=== PATIENT | female | born 1960 ===

== ENCOUNTER 2020-02-16 10:44 | Outpatient (REF) | payer OTHER, SELFPAY ==
[2020-02-20 21:41] LABS: SARS-CoV-2 RNA Undetected (Undetected); SARS-CoV-2 Specimen Source Nasopharynx
== END 2020-02-16 11:04 ==
LOC: NCHCN 10:44
PROVIDERS: PCP Family Medicine; Visit Provider Family Medicine
DX: Z11.59 Encounter for screening for other viral diseases (principal)
CPT/HCPCS: U0003

== ENCOUNTER 2020-09-22 11:18 | Outpatient (REF) | payer OTHER, SELFPAY ==
[2020-09-22 13:42] LABS: Calculated LDL 137 mg/dL (<100); Cholesterol 233 mg/dL (<200); HDL Cholesterol 91 mg/dL (40-60); Triglyceride 26 mg/dL (<150)
[2020-09-22 14:09] LABS: Hemoglobin A1C 5.8 % (<5.7)
[2020-09-24 17:36] LABS: Vitamin D 25 Total 22.2 ng/mL (30-100)
== END 2020-09-22 11:19 | disposition home or self-care (01) ==
LOC: NCHCN 11:18
PROVIDERS: PCP Family Medicine; Visit Provider Family Medicine
DX: Z00.00 Encounter for general adult medical examination without abnormal findings (principal); M81.0 Age-related osteoporosis without current pathological fracture; M12.871 Other specific arthropathies, not elsewhere classified, right ankle and foot; M12.872 Other specific arthropathies, not elsewhere classified, left ankle and foot; Z13.220 Encounter for screening for lipoid disorders; Z13.1 Encounter for screening for diabetes mellitus
CPT/HCPCS: 80061; 82306; 83036

== ENCOUNTER 2021-02-02 14:37 | Outpatient (REF) | payer OTHER, SELFPAY | END 2021-02-02 14:38 | disposition home or self-care (01) | LOC: NCHCN 14:37 | PROVIDERS: PCP Family Medicine; Visit Provider Family Medicine | DX: R19.7 Diarrhea, unspecified (principal) | CPT/HCPCS: 87329 ==

== ENCOUNTER 2022-06-18 18:00 | Outpatient (REF) | payer OTHER, SELFPAY ==
[2022-06-18 15:35] LABS: Vitamin D 25 Total 26.3 ng/mL (30-100)
== END 2022-06-18 18:01 | disposition home or self-care (01) ==
LOC: NCHCN 18:00
PROVIDERS: PCP Family Medicine; Visit Provider Family Medicine
DX: E55.9 Vitamin D deficiency, unspecified (principal)
CPT/HCPCS: 82306

== ENCOUNTER 2023-09-08 16:07 | Outpatient (REF) | payer OTHER, SELFPAY ==
--- NOTE | 2023-09-08 13:30 | PAPFT_PTH ---
PATIENT: Yojana Freed LOC: [facility]#:[id number] AGE/SX: 63/F ROOM: RE09/08/[address]: Cassie Stahl : 1960 BED: DIS: 09/08/2023 SPEC #: [id number] RECD: 09/09/23 12:58 STATUS: WILLIAM REManoj #: [id number] ARACELIS: 09/08/23 13:[address]: Cassie Stahl DEPT: [facility] Cytology RECD BY: Nat Stack Tissues: 1 - CX/ENDOCX FOR PAP SMEARS Procedures: PAP THIN PREP/[facility] Screening HPV DNA PROBE Comments: [id number]
[2023-09-08 21:43] LABS: Hemoglobin A1C 5.6 % (<5.7)
[2023-09-08 21:44] LABS: Calculated LDL 142 mg/dL (<100); Cholesterol 246 mg/dL (<200); HDL Cholesterol 90 mg/dL (40-60); Triglyceride 71 mg/dL (<150)
== END 2023-09-08 16:08 | disposition home or self-care (01) ==
LOC: NCHCN 16:07
PROVIDERS: PCP Family Medicine; Visit Provider Family Medicine
DX: Z13.1 Encounter for screening for diabetes mellitus (principal); Z13.220 Encounter for screening for lipoid disorders
CPT/HCPCS: 80061; 88142; 83036; 87624